=== PATIENT | male | born 1955 ===

== ENCOUNTER 2021-10-24 13:43 | Emergency (ER) | payer BC ==
[~2021-10-24] VITALS: Ht 175.3 cm; Wt 90.9 kg
[2021-10-24 14:00] VITALS: BP 128/90
[2021-10-24 15:06] LABS: BASOPHILS # (AUTO) 0.1 X10'3 (0-0.2); BASOPHILS % (AUTO) 0.8 % (0-1); EOSINOPHILS # (AUTO) 0.7 X10'3 (0-0.9); HEMATOCRIT 41.7 % (42.0-52.0); HEMOGLOBIN 13.5 g/dl (14.0-17.9); LYMPHOCYTES # (AUTO) 1.4 X10'3 (1.1-4.8); MEAN CORPUSCULAR HEMOGLOBIN 26.6 PG (27.0-31.0); MEAN CORPUSCULAR HGB CONC 32.3 g/dL (33.0-36.5); MEAN CORPUSCULAR VOLUME 82.2 FL (78-98); MEAN PLATELET VOLUME 8.3 FL (7.4-10.4); MONOCYTES # (AUTO) 1.2 X10'3 (0-0.9); MONOCYTES % (AUTO) 8.5 % (2-12); NEUTROPHILS # (AUTO) 10.6 X10'3 (1.8-7.7); NEUTROPHILS % (AUTO) 75.7 % (42-75); PLATELET COUNT 262 X10'3 (140-440); RED BLOOD COUNT 5.07 X10'6 (4.70-6.10); RED CELL DISTRIBUTION WIDTH 16.4 % (11.5-14.5); WHITE BLOOD COUNT 14.1 X10'3 (4.5-11.0)
[2021-10-24 15:19] LABS: ALANINE AMINOTRANSFERASE 25 U/L (12-78); ALBUMIN 3.5 G/DL (3.4-5.0); ALBUMIN/GLOBULIN RATIO 0.9 (1.1-1.5); ALKALINE PHOSPHATASE 72 IU/L (46-116); ANION GAP 7 (8-16); ASPARTATE AMINO TRANSFERASE 18 U/L (10-37); BILIRUBIN,TOTAL 0.3 MG/DL (0.1-1.0); BLOOD UREA NITROGEN 13 MG/DL (7-18); CALCIUM 8.3 MG/DL (8.5-10.1); CHLORIDE 102 MMOL/L (99-107); CREATININE 1.18 MG/DL (0.60-1.10); GLUCOSE 74 MG/DL (70-104); POTASSIUM 3.6 MMOL/L (3.5-5.1); SODIUM 139 MMOL/L (135-145); TOTAL CARBON DIOXIDE 29.6 MMOL/L (24-32); TOTAL PROTEIN 7.2 G/DL (6.4-8.2); eGFR 62 ML/MIN
[2021-10-24 16:21] LABS: MAGNESIUM 2.3 MG/DL (1.5-2.4)
== END 2021-10-24 18:50 | disposition left against medical advice (07) ==
LOC: ER 13:59
DX: R42 Dizziness and giddiness (principal); R50.9 Fever, unspecified; R41.0 Disorientation, unspecified; Z53.21 Procedure and treatment not carried out due to patient leaving prior to being seen by health care provider
CPT/HCPCS: 36415; 80053; 83735; 84145; 85025

== ENCOUNTER 2021-12-22 14:19 | Inpatient (IN) | payer BC ==
[~2021-12-22] VITALS: Ht 175.3 cm; Wt 92.0 kg
[2021-12-22] MEDS ORDERED: normal saline 1000ML IV soln IV ONE ×2 (14:50→17:30)
[2021-12-22] MEDS ORDERED: CefTRIAXone 2gm/D5W 50ml BAG 50 ML IV ONE (14:50)
[2021-12-22 15:11] LABS: BASOPHILS % (AUTO) 0.2 % (0-1); EOSINOPHILS # (AUTO) 0.4 X10'3 (0-0.9); EOSINOPHILS % (AUTO) 3.3 % (0-6); HEMOGLOBIN 11.9 g/dl (14.0-17.9); LYMPHOCYTES # (AUTO) 0.8 X10'3 (1.1-4.8); LYMPHOCYTES % (AUTO) 6.9 % (21-51); MEAN CORPUSCULAR HEMOGLOBIN 26.3 PG (27.0-31.0); MEAN CORPUSCULAR HGB CONC 32.1 g/dL (33.0-36.5); MEAN PLATELET VOLUME 8.2 FL (7.4-10.4); MONOCYTES # (AUTO) 1.8 X10'3 (0-0.9); MONOCYTES % (AUTO) 15.2 % (2-12); NEUTROPHILS % (AUTO) 74.4 % (42-75); PLATELET COUNT 284 X10'3 (140-440); RED BLOOD COUNT 4.51 X10'6 (4.70-6.10); RED CELL DISTRIBUTION WIDTH 16.6 % (11.5-14.5); WHITE BLOOD COUNT 12.1 X10'3 (4.5-11.0)
[2021-12-22] MEDS ORDERED: VANCOMYCIN 1GM/200ML IVPB 200 ML IV ONE ×2 (15:15→19:05)
[2021-12-22 15:34] LABS: ALANINE AMINOTRANSFERASE 26 U/L (12-78); ALBUMIN 2.5 G/DL (3.4-5.0); ALBUMIN/GLOBULIN RATIO 0.6 (1.1-1.5); ALKALINE PHOSPHATASE 109 IU/L (46-116); ANION GAP 13 (8-16); ASPARTATE AMINO TRANSFERASE 26 U/L (10-37); BILIRUBIN,TOTAL 0.4 MG/DL (0.1-1.0); BLOOD UREA NITROGEN 51 MG/DL (7-18); BUN/CREATININE RATIO 17.5 (5.4-32.0); CALCIUM 8.8 MG/DL (8.5-10.1); CHLORIDE 95 MMOL/L (99-107); CREATININE 2.91 MG/DL (0.60-1.10); GLUCOSE 64 MG/DL (70-104); POTASSIUM 3.6 MMOL/L (3.5-5.1); SODIUM 133 MMOL/L (135-145); TOTAL CARBON DIOXIDE 25.1 MMOL/L (24-32); eGFR 22 ML/MIN
[2021-12-22] MEDS ORDERED: vancomycin/NS 1 GM ADD-VANTAGE 250 ML IV ONE (15:50)
[2021-12-22] MEDS ORDERED: piperacillin/tazo 3.375gm/50ml 50 ML IV ONE (15:50)
[2021-12-22 15:52] LABS: ANISOCYTOSIS 1+; PLATELET ESTIMATE NORMAL; TOTAL CELLS COUNTED 100
[2021-12-22] MEDS ORDERED: iohexol 300mg/ml 100ml inj. ONE (16:13)
[2021-12-22 16:32] LABS: MAGNESIUM 2.7 MG/DL (1.5-2.4)
[2021-12-22] MEDS ORDERED: DULO30CA52 PO (17:31)
[2021-12-22] MEDS ORDERED: CYCL-1 PO (17:31)
[2021-12-22] MEDS ORDERED: FLUT16SP26 BOTHNARES (17:31)
[2021-12-22] MEDS ORDERED: CHLO25TA10 PO (17:31)
[2021-12-22] MEDS ORDERED: HYDR-3972 PO (17:31)
[2021-12-22] MEDS ORDERED: NEBI5TAB10 PO (17:31)
[2021-12-22] MEDS ORDERED: CITA10TA93 PO (17:31)
[2021-12-22] MEDS ORDERED: LANS30CA56 PO (17:31)
[2021-12-22] MEDS ORDERED: ALBU17AE26 PO (17:31)
[2021-12-22] MEDS ORDERED: ondansetron/PF 4mg/2ml inj IV ONE (17:50)
[2021-12-22] MEDS: morphine 4 MG/ML inj SYRINge IV PRN ×2 (18:05→19:37)
[2021-12-22] MEDS ORDERED: magnesium Cl slow-release 64mg tablet PO PRN (18:15)
[2021-12-22] MEDS ORDERED: magnesium 4gm in 100ml NS 100 ML IV PRN (18:15)
[2021-12-22] MEDS ORDERED: morphine 2 MG/ML inj. syringe IV PRN ×2 (18:15)
[2021-12-22] MEDS ORDERED: magnesium 2GM in 50ml NS 50 ML IV PRN (18:15)
[2021-12-22] MEDS ORDERED: ondansetron/PF 4mg/2ml inj IV PRN (18:15)
[2021-12-22] MEDS ORDERED: potassium CL 10mEq/100ml bag 100 ML IV PRN (18:15)
[2021-12-22] MEDS ORDERED: HYDROcodone/acetaminophen 5mg/325mg tablet PO PRN (18:15)
[2021-12-22] MEDS ORDERED: potassium Cl 20 mEq SR tablet PO PRN ×2 (18:15)
[2021-12-22] MEDS ORDERED: acetaminophen 650mg rectal suppository RC PRN (18:15)
[2021-12-22] MEDS ORDERED: acetaminophen 325mg tablet PO PRN ×2 (18:15)
[2021-12-22] MEDS ORDERED: diphenhydrAMINE 25mg capsule PO PRN (18:15)
[2021-12-22] MEDS ORDERED: bisacodyl 10mg suppository rectal RC PRN (18:15)
[2021-12-22] MEDS ORDERED: magnesium hydroxide 30ml (MOM) UD suspension PO PRN (18:15)
[2021-12-22] MEDS ORDERED: mag hydrox/Alum hydrox/simeth 30ml oral suspension PO PRN (18:15)
[2021-12-22 18:36] LABS: HEMOGLOBIN A1C 6.5 % (4.5-6.2)
[2021-12-22 19:28] LABS: CLARITY,URINE SLIGHTLY CLOUDY (Clear); COLOR,URINE YELLOW (Yellow); GLUCOSE, URINE NEGATIVE (Neg); KETONES,URINE TRACE mg/dl (Neg); LEUKOCYTE ESTERASE ,URINE NEGATIVE (Neg); NITRITES, URINE NEGATIVE (Neg); OCCULT BLOOD,URINE NEGATIVE (Neg); PH,URINE 5.5 (4.8-8.0); PROTEIN,URINE NEGATIVE (Neg)
[2021-12-22] MEDS: normal saline 1000ml 1,000 ML IV SCH (19:38)
[2021-12-22] MEDS: heparin, porcine 5000 units/ml vial SQ SCH (19:38)
[2021-12-22] MEDS: docusate sod 100mg capsule PO SCH (19:38)
[2021-12-22 19:41] LABS: UA COLLECTION TYPE CLN CATCH MIDSTREAM
[2021-12-22 19:44] LABS: BACTERIA,URINE NONE SEEN /HPF (Neg); MUCUS STRANDS FEW /LPF (Neg); RBC,URINE 0-2 /HPF (0-2); SQUAMOUS EPITHELIAL CELL,UR FEW /LPF (FEW); WBC,URINE 0-4 /HPF (0-4)
[2021-12-22] MEDS: K and/or MAG REPLACEMENT MC SCH (19:46)
[2021-12-22 20:00] VITALS: BP 86/53
[2021-12-22] MEDS: piperacillin/tazo 3.375gm/50ml 50 ML IV SCH (21:05)
[2021-12-22 22:57] VITALS: BP 86/53
[2021-12-22 23:19] VITALS: BP 86/53
[2021-12-23] VITALS (9 sets, daily range): BP systolic 78–103; BP diastolic 48–64
[2021-12-23] MEDS: piperacillin/tazo 3.375gm/50ml 50 ML IV SCH ×3 (00:18→16:26)
[2021-12-23] MEDS: normal saline 1000ml 1,000 ML IV SCH ×3 (02:19→20:21)
[2021-12-23] MEDS: CITALOpram 10mg tablet PO SCH (07:31)
[2021-12-23] MEDS: duloxetine 30mg CAPSULE.DR PO SCH (07:31)
[2021-12-23] MEDS: docusate sod 100mg capsule PO SCH ×3 (07:31→19:38)
[2021-12-23] MEDS: pantoprazole 40mg Tablet.DR PO SCH (07:31)
[2021-12-23] MEDS: heparin, porcine 5000 units/ml vial SQ SCH (07:32)
[2021-12-23 07:38] LABS: BASOPHILS % (AUTO) 0.3 % (0-1); EOSINOPHILS # (AUTO) 0.6 X10'3 (0-0.9); EOSINOPHILS % (AUTO) 5.3 % (0-6); HEMATOCRIT 34.2 % (42.0-52.0); HEMOGLOBIN 10.9 g/dl (14.0-17.9); LYMPHOCYTES # (AUTO) 0.4 X10'3 (1.1-4.8); LYMPHOCYTES % (AUTO) 4.1 % (21-51); MEAN CORPUSCULAR HEMOGLOBIN 26.5 PG (27.0-31.0); MEAN PLATELET VOLUME 8.5 FL (7.4-10.4); MONOCYTES # (AUTO) 1.4 X10'3 (0-0.9); MONOCYTES % (AUTO) 12.6 % (2-12); NEUTROPHILS # (AUTO) 8.4 X10'3 (1.8-7.7); NEUTROPHILS % (AUTO) 77.7 % (42-75); PLATELET COUNT 260 X10'3 (140-440); RED BLOOD COUNT 4.11 X10'6 (4.70-6.10); RED CELL DISTRIBUTION WIDTH 17.1 % (11.5-14.5); WHITE BLOOD COUNT 10.8 X10'3 (4.5-11.0)
[2021-12-23] MEDS: HYDROcodone/acetaminophen 10/325mg tab PO PRN (07:43)
[2021-12-23 07:49] LABS: ALANINE AMINOTRANSFERASE 25 U/L (12-78); ALBUMIN/GLOBULIN RATIO 0.6 (1.1-1.5); ALKALINE PHOSPHATASE 113 IU/L (46-116); ANION GAP 10 (8-16); ASPARTATE AMINO TRANSFERASE 25 U/L (10-37); BILIRUBIN,TOTAL 0.5 MG/DL (0.1-1.0); BLOOD UREA NITROGEN 36 MG/DL (7-18); BUN/CREATININE RATIO 22.5 (5.4-32.0); CALCIUM 7.2 MG/DL (8.5-10.1); CHLORIDE 101 MMOL/L (99-107); CHOL/HDL RATIO 11.6 (0.00-4.99); CHOLESTEROL 128 MG/DL (0-200); GLUCOSE 106 MG/DL (70-104); HDL CHOLESTEROL 11 MG/DL (35-60); LDL CHOLESTEROL 38 MG/DL (50-100); MAGNESIUM 2.2 MG/DL (1.5-2.4); PHOSPHORUS 3.5 MG/DL (2.3-4.5); POTASSIUM 3.8 MMOL/L (3.5-5.1); SODIUM 135 MMOL/L (135-145); TOTAL CARBON DIOXIDE 24.3 MMOL/L (24-32); TOTAL PROTEIN 5.4 G/DL (6.4-8.2); TRIGLYCERIDES 327 MG/DL (20-135); eGFR 44 ML/MIN
[2021-12-23] MEDS: K and/or MAG REPLACEMENT MC SCH ×2 (08:00→19:50)
[2021-12-23] MEDS ORDERED: LORazepam 1 MG tablet PO PRN (08:50)
[2021-12-23] MEDS ORDERED: LORazepam 2 mg/ml vial IV PRN (08:50)
[2021-12-23 08:54] LABS: ANISOCYTOSIS 1+; PLATELET ESTIMATE NORMAL; TOTAL CELLS COUNTED 100
[2021-12-23 08:55] LABS: POLYCHROMASIA FEW; SCHISTOCYTES FEW
[2021-12-23] MEDS: enoxaparin 40mg/0.4ml syringe SUBCUT SCH ×3 (09:26→19:38)
[2021-12-23 09:41] LABS: D-DIMER 1.66 MG/L FEU (0-0.50)
--- NOTE | 2021-12-23 18:20 | NUR ---
Patient in room [facility]. I have received report from VAISHNAVI Holden and had the opportunity to ask questions and assume patient care.
--- NOTE | 2021-12-23 18:36 | NUR ---
Problems reprioritized. Patient report given, questions answered & plan of care reviewed with Sagrario RIGGINS.
[2021-12-23] MEDS: VANCOmycin 1250MG/NS 250ml Bag 250 ML IV SCH (22:37)
[2021-12-24] VITALS (8 sets, daily range): BP systolic 100–129; BP diastolic 60–88
[2021-12-24] MEDS: piperacillin/tazo 3.375gm/50ml 50 ML IV SCH ×3 (00:28→15:52)
[2021-12-24] MEDS: normal saline 1000ml 1,000 ML IV SCH ×3 (02:15→18:15)
--- NOTE | 2021-12-24 06:27 | NUR ---
Problems reprioritized. Patient report given, questions answered & plan of care reviewed with VAISHNAVI Holden.
[2021-12-24] MEDS: multivitamins, therapeutics tablet PO SCH (07:13)
[2021-12-24] MEDS: CITALOpram 10mg tablet PO SCH (07:13)
[2021-12-24] MEDS: pantoprazole 40mg Tablet.DR PO SCH (07:13)
[2021-12-24] MEDS: enoxaparin 40mg/0.4ml syringe SUBCUT SCH ×2 (07:14→20:19)
[2021-12-24] MEDS: duloxetine 30mg CAPSULE.DR PO SCH (07:14)
[2021-12-24] MEDS: docusate sod 100mg capsule PO SCH ×2 (07:14→20:19)
[2021-12-24] MEDS: K and/or MAG REPLACEMENT MC SCH ×2 (08:00→19:05)
[2021-12-24 09:10] LABS: BASOPHILS % (AUTO) 0.3 % (0-1); EOSINOPHILS # (AUTO) 0.4 X10'3 (0-0.9); EOSINOPHILS % (AUTO) 4.2 % (0-6); HEMATOCRIT 34.3 % (42.0-52.0); HEMOGLOBIN 10.9 g/dl (14.0-17.9); LYMPHOCYTES # (AUTO) 0.9 X10'3 (1.1-4.8); LYMPHOCYTES % (AUTO) 8.8 % (21-51); MEAN CORPUSCULAR HEMOGLOBIN 26.6 PG (27.0-31.0); MEAN CORPUSCULAR HGB CONC 31.9 g/dL (33.0-36.5); MEAN CORPUSCULAR VOLUME 83.4 FL (78-98); MEAN PLATELET VOLUME 8.3 FL (7.4-10.4); MONOCYTES # (AUTO) 1.3 X10'3 (0-0.9); NEUTROPHILS # (AUTO) 7.3 X10'3 (1.8-7.7); NEUTROPHILS % (AUTO) 73.7 % (42-75); PLATELET COUNT 284 X10'3 (140-440); RED BLOOD COUNT 4.11 X10'6 (4.70-6.10); RED CELL DISTRIBUTION WIDTH 17.1 % (11.5-14.5)
[2021-12-24 09:15] LABS: D-DIMER 1.28 MG/L FEU (0-0.50)
[2021-12-24] MEDS: VANCOmycin 1250MG/NS 250ml Bag 250 ML IV SCH ×2 (10:25→22:00)
[2021-12-24 10:41] LABS: ALANINE AMINOTRANSFERASE 26 U/L (12-78); ALBUMIN/GLOBULIN RATIO 0.6 (1.1-1.5); ALKALINE PHOSPHATASE 140 IU/L (46-116); ANION GAP 12 (8-16); ASPARTATE AMINO TRANSFERASE 18 U/L (10-37); BILIRUBIN,TOTAL 0.5 MG/DL (0.1-1.0); BLOOD UREA NITROGEN 20 MG/DL (7-18); BUN/CREATININE RATIO 17.1 (5.4-32.0); CHLORIDE 102 MMOL/L (99-107); CREATININE 1.17 MG/DL (0.60-1.10); GLUCOSE 104 MG/DL (70-104); LACTATE DEHYDROGENASE 127 U/L (85-227); MAGNESIUM 2.5 MG/DL (1.5-2.4); POTASSIUM 3.5 MMOL/L (3.5-5.1); SODIUM 139 MMOL/L (135-145); TOTAL CARBON DIOXIDE 25.3 MMOL/L (24-32); TOTAL PROTEIN 5.5 G/DL (6.4-8.2); eGFR 63 ML/MIN
[2021-12-24 11:27] LABS: ANISOCYTOSIS 1+; PLATELET ESTIMATE NORMAL; POLYCHROMASIA 1+; TOTAL CELLS COUNTED 100
[2021-12-24 11:28] LABS: ELLIPTOCYTES FEW
--- NOTE | 2021-12-24 18:00 | NUR ---
Patient in room [facility]. I have received report from VAISHNAVI Holden and had the opportunity to ask questions and assume patient care.
--- NOTE | 2021-12-24 18:03 | NUR ---
Problems reprioritized. Patient report given, questions answered & plan of care reviewed with Adina RIGGINS.
[2021-12-24] MEDS: HYDROcodone/acetaminophen 10/325mg tab PO PRN (19:02)
[2021-12-25] VITALS (7 sets, daily range): BP systolic 114–148; BP diastolic 75–88
[2021-12-25] MEDS: piperacillin/tazo 3.375gm/50ml 50 ML IV SCH ×3 (00:09→16:31)
[2021-12-25] MEDS: HYDROcodone/acetaminophen 10/325mg tab PO PRN ×3 (00:17→18:48)
--- NOTE | 2021-12-25 00:23 | NUR ---
Dr. Craft was notified regarding pt. SOR, and wheezing ,he gave a order to stop fluids,to give Lasix 40 mg ones,lab. order and chest X-ray.We will continue with pt. care.
[2021-12-25] MEDS ORDERED: furosemide 40mg/4ml inj IV ONE (00:30)
[2021-12-25 01:41] LABS: ALANINE AMINOTRANSFERASE 25 U/L (12-78); ALBUMIN 1.8 G/DL (3.4-5.0); ALBUMIN/GLOBULIN RATIO 0.6 (1.1-1.5); ALKALINE PHOSPHATASE 148 IU/L (46-116); ANION GAP 9 (8-16); ASPARTATE AMINO TRANSFERASE 21 U/L (10-37); BILIRUBIN,TOTAL 0.4 MG/DL (0.1-1.0); BLOOD UREA NITROGEN 14 MG/DL (7-18); BUN/CREATININE RATIO 13.9 (5.4-32.0); C-REACTIVE PROTEIN 17.57 MG/DL (0.0-0.5); CHLORIDE 104 MMOL/L (99-107); CREATININE 1.01 MG/DL (0.60-1.10); GLUCOSE 98 MG/DL (70-104); LACTATE DEHYDROGENASE 137 U/L (85-227); MAGNESIUM 2.2 MG/DL (1.5-2.4); POTASSIUM 3.7 MMOL/L (3.5-5.1); SODIUM 141 MMOL/L (135-145); TOTAL CARBON DIOXIDE 28.3 MMOL/L (24-32); eGFR 74 ML/MIN
--- NOTE | 2021-12-25 06:10 | NUR ---
Problems reprioritized. Patient report given, questions answered & plan of care reviewed with VAISHNAVI Holden.
[2021-12-25] MEDS: pantoprazole 40mg Tablet.DR PO SCH (07:11)
[2021-12-25] MEDS: docusate sod 100mg capsule PO SCH ×2 (07:11→18:48)
[2021-12-25] MEDS: multivitamins, therapeutics tablet PO SCH (07:11)
[2021-12-25] MEDS: CITALOpram 10mg tablet PO SCH (07:11)
[2021-12-25] MEDS: duloxetine 30mg CAPSULE.DR PO SCH (07:11)
[2021-12-25] MEDS: enoxaparin 40mg/0.4ml syringe SUBCUT SCH ×2 (07:12→18:49)
[2021-12-25 07:54] LABS: BASOPHILS # (AUTO) 0.1 X10'3 (0-0.2); BASOPHILS % (AUTO) 0.6 % (0-1); EOSINOPHILS # (AUTO) 0.4 X10'3 (0-0.9); EOSINOPHILS % (AUTO) 4.5 % (0-6); HEMATOCRIT 33.6 % (42.0-52.0); HEMOGLOBIN 10.9 g/dl (14.0-17.9); LYMPHOCYTES # (AUTO) 0.9 X10'3 (1.1-4.8); LYMPHOCYTES % (AUTO) 9.1 % (21-51); MEAN CORPUSCULAR HEMOGLOBIN 26.5 PG (27.0-31.0); MEAN CORPUSCULAR HGB CONC 32.3 g/dL (33.0-36.5); MEAN CORPUSCULAR VOLUME 82.1 FL (78-98); MEAN PLATELET VOLUME 8.3 FL (7.4-10.4); MONOCYTES # (AUTO) 1.2 X10'3 (0-0.9); MONOCYTES % (AUTO) 11.9 % (2-12); NEUTROPHILS # (AUTO) 7.3 X10'3 (1.8-7.7); NEUTROPHILS % (AUTO) 73.9 % (42-75); PLATELET COUNT 326 X10'3 (140-440); WHITE BLOOD COUNT 9.8 X10'3 (4.5-11.0)
[2021-12-25] MEDS: K and/or MAG REPLACEMENT MC SCH ×2 (08:00→18:49)
[2021-12-25 08:47] LABS: D-DIMER 0.95 MG/L FEU (0-0.50)
[2021-12-25] MEDS ORDERED: VANCOMYCIN LEVEL IV ONE (09:30)
[2021-12-25 10:36] LABS: ANISOCYTOSIS 1+; MICROCYTOSIS 1+; PLATELET ESTIMATE NORMAL; POLYCHROMASIA FEW; TOTAL CELLS COUNTED 100
[2021-12-25] MEDS: VANCOmycin 1250MG/NS 250ml Bag 250 ML IV SCH ×2 (10:37→22:07)
--- NOTE | 2021-12-25 15:13 | NUR ---
Message: [id number]. Did you want to do US of chest? I was told you were considering, but I do not have any orders. Adina RIGGINS [id number]
[2021-12-25] MEDS ORDERED: iohexol 300mg/ml 100ml inj. ONE (16:25)
--- NOTE | 2021-12-25 18:17 | NUR ---
Patient in room [facility]. I have received report from VAISHNAVI Holden and had the opportunity to ask questions and assume patient care.
--- NOTE | 2021-12-25 18:27 | NUR ---
Problems reprioritized. Patient report given, questions answered & plan of care reviewed with Adina RIGGINS.
[2021-12-25] MEDS ORDERED: dextrose ORAL solution 15 GM/59 ML bottle PO PRN ×2 (19:40)
[2021-12-25] MEDS ORDERED: glucagon, human recombinant 1mg kit SUBCUT PRN (19:40)
[2021-12-25] MEDS ORDERED: dextrose 50%-water 50ml dispensing syringe IV PRN ×2 (19:40)
[2021-12-25] MEDS ORDERED: insulin Lispro (HumaLOG) vial - multi-dose SQ SCH (19:40)
[2021-12-25] MEDS ORDERED: ALBUTEROL INHALER 1 PUFF/90 MCG INHALER IH PRN (19:40)
[2021-12-25] MEDS: clindamycin 600mg/D5W 50ml 50 ML IV SCH (20:03)
[2021-12-25] MEDS: insulin glargine (Lantus) pen - multi-dose SQ SCH (21:00)
[2021-12-26] MEDS: piperacillin/tazo 3.375gm/50ml 50 ML IV SCH ×3 (00:23→15:36)
[2021-12-26] MEDS: HYDROcodone/acetaminophen 10/325mg tab PO PRN ×5 (00:32→21:01)
[2021-12-26] MEDS: clindamycin 600mg/D5W 50ml 50 ML IV SCH ×4 (02:18→19:24)
[2021-12-26 06:00] VITALS: BP 136/90
--- NOTE | 2021-12-26 06:05 | NUR ---
received report from porter yen
--- NOTE | 2021-12-26 06:14 | NUR ---
Problems reprioritized. Patient report given, questions answered & plan of care reviewed with VAISHNAVI Albrecht.
[2021-12-26] MEDS: pantoprazole 40mg Tablet.DR PO SCH (07:10)
[2021-12-26] MEDS: CITALOpram 10mg tablet PO SCH (07:10)
[2021-12-26] MEDS: duloxetine 30mg CAPSULE.DR PO SCH (07:10)
[2021-12-26] MEDS: multivitamins, therapeutics tablet PO SCH (07:11)
[2021-12-26] MEDS: enoxaparin 40mg/0.4ml syringe SUBCUT SCH ×2 (07:22→19:16)
[2021-12-26 07:45] LABS: D-DIMER 1.37 MG/L FEU (0-0.50)
[2021-12-26 07:53] LABS: BASOPHILS % (AUTO) 0.5 % (0-1); EOSINOPHILS # (AUTO) 0.5 X10'3 (0-0.9); EOSINOPHILS % (AUTO) 6.2 % (0-6); HEMOGLOBIN 10.9 g/dl (14.0-17.9); LYMPHOCYTES # (AUTO) 0.9 X10'3 (1.1-4.8); LYMPHOCYTES % (AUTO) 10.2 % (21-51); MEAN CORPUSCULAR HEMOGLOBIN 26.1 PG (27.0-31.0); MEAN CORPUSCULAR VOLUME 81.5 FL (78-98); MONOCYTES # (AUTO) 0.8 X10'3 (0-0.9); MONOCYTES % (AUTO) 9.3 % (2-12); NEUTROPHILS # (AUTO) 6.2 X10'3 (1.8-7.7); NEUTROPHILS % (AUTO) 73.8 % (42-75); PLATELET COUNT 335 X10'3 (140-440); RED BLOOD COUNT 4.17 X10'6 (4.70-6.10); RED CELL DISTRIBUTION WIDTH 16.7 % (11.5-14.5); WHITE BLOOD COUNT 8.4 X10'3 (4.5-11.0)
[2021-12-26] MEDS: docusate sod 100mg capsule PO SCH ×2 (08:00→20:00)
[2021-12-26] MEDS: K and/or MAG REPLACEMENT MC SCH ×2 (08:00→20:00)
[2021-12-26 08:21] LABS: ALANINE AMINOTRANSFERASE 29 U/L (12-78); ALBUMIN 2.1 G/DL (3.4-5.0); ALBUMIN/GLOBULIN RATIO 0.6 (1.1-1.5); ALKALINE PHOSPHATASE 156 IU/L (46-116); ANION GAP 8 (8-16); ASPARTATE AMINO TRANSFERASE 27 U/L (10-37); BILIRUBIN,TOTAL 0.5 MG/DL (0.1-1.0); BLOOD UREA NITROGEN 10 MG/DL (7-18); BUN/CREATININE RATIO 11.9 (5.4-32.0); C-REACTIVE PROTEIN 9.96 MG/DL (0.0-0.5); CALCIUM 8.5 MG/DL (8.5-10.1); CHLORIDE 102 MMOL/L (99-107); CREATININE 0.84 MG/DL (0.60-1.10); GLUCOSE 96 MG/DL (70-104); LACTATE DEHYDROGENASE 153 U/L (85-227); PHOSPHORUS 3.7 MG/DL (2.3-4.5); POTASSIUM 3.4 MMOL/L (3.5-5.1); SODIUM 142 MMOL/L (135-145); TOTAL CARBON DIOXIDE 32.2 MMOL/L (24-32); TOTAL PROTEIN 5.5 G/DL (6.4-8.2); eGFR > 90 ML/MIN
--- NOTE | 2021-12-26 08:39 | NUR ---
Initial: Pt admitted w/ sepsis secondary to L chest cellulitis per EMR. Pt currently on Carb Controlled/Heart Healthy diet w/ mostly 100% intake of meals which meets approximately 100% of est protein and energy needs. Recommend liberalizing to Regular diet given A1c 6.5 and BG well controlled this admit. Additionally, pt w/ elevated TG and low HDL/LDL, consider fish oil supplement in lieu of Heart Healthy diet per MD discretion. LBM 2/5. Will continue to monitor. Recs: 1. Consider liberalizing to Regular diet 2. Consider fish oil supplement per MD discretion 3. Monitor need for additional protein 4. Bowel care per rx 5. Weekly wts Addendum: 12/26/21 at [address] Amended: Links added.
[2021-12-26] MEDS ORDERED: magnesium 4gm in 100ml NS 100 ML IV PRN (08:40)
[2021-12-26] MEDS ORDERED: magnesium Cl slow-release 64mg tablet PO PRN (08:40)
[2021-12-26] MEDS ORDERED: potassium CL 10mEq/100ml bag 100 ML IV PRN (08:40)
[2021-12-26] MEDS ORDERED: potassium Cl 20 mEq SR tablet PO PRN (08:40)
[2021-12-26] MEDS ORDERED: magnesium 2GM in 50ml NS 50 ML IV PRN (08:40)
[2021-12-26] MEDS: potassium Cl 20 mEq SR tablet PO PRN ×3 (08:58→16:55)
--- NOTE | 2021-12-26 08:59 | NUR ---
computer not scanning all meds into [employer], checked meds prior to admin
[2021-12-26 10:00] VITALS: BP 139/91
[2021-12-26] MEDS: VANCOmycin 1250MG/NS 250ml Bag 250 ML IV SCH ×2 (10:22→22:21)
--- NOTE | 2021-12-26 11:58 | NUR ---
Diabetes consult: Noted A1c 6.5 though no hx of DM in EMR. Pt will need official diagnosis by MD before RD can provide DM education. Addendum: 12/26/21 at [address] Amended: Links added.
[2021-12-26 12:48] LABS: TOTAL CELLS COUNTED 100
[2021-12-26 12:50] LABS: ANISOCYTOSIS 1+; HYPOCHROMASIA 1+; PLATELET ESTIMATE NORMAL; POLYCHROMASIA FEW; TEAR DROP CELLS FEW
--- NOTE | 2021-12-26 15:36 | NUR ---
scanner on computer not scanning meds into [employer], checked meds prior to admin
--- NOTE | 2021-12-26 16:56 | NUR ---
scanner on computer not scanning meds into [employer], checked meds prior to admin
[2021-12-26 18:00] VITALS: BP 148/91
--- NOTE | 2021-12-26 18:22 | NUR ---
GAVE REPORT TO February,
[2021-12-26] MEDS: insulin glargine (Lantus) pen - multi-dose SQ SCH (21:00)
[2021-12-26 22:00] VITALS: BP 146/89
[2021-12-27] MEDS: piperacillin/tazo 3.375gm/50ml 50 ML IV SCH ×2 (00:26→09:06)
[2021-12-27 02:00] VITALS: BP 136/91
[2021-12-27] MEDS: clindamycin 600mg/D5W 50ml 50 ML IV SCH ×2 (02:37→07:43)
[2021-12-27] MEDS: HYDROcodone/acetaminophen 10/325mg tab PO PRN ×3 (02:37→12:44)
[2021-12-27 06:00] VITALS: BP 149/95
--- NOTE | 2021-12-27 06:05 | NUR ---
received report from ban, rn
[2021-12-27] MEDS: CITALOpram 10mg tablet PO SCH (07:43)
[2021-12-27] MEDS: multivitamins, therapeutics tablet PO SCH (07:43)
[2021-12-27] MEDS: pantoprazole 40mg Tablet.DR PO SCH (07:43)
[2021-12-27] MEDS: duloxetine 30mg CAPSULE.DR PO SCH (07:44)
[2021-12-27] MEDS: enoxaparin 40mg/0.4ml syringe SUBCUT SCH (07:44)
[2021-12-27 07:57] LABS: D-DIMER 2.01 MG/L FEU (0-0.50)
[2021-12-27] MEDS: docusate sod 100mg capsule PO SCH (08:00)
[2021-12-27] MEDS: K and/or MAG REPLACEMENT MC SCH (08:00)
[2021-12-27 08:02] LABS: BASOPHILS % (AUTO) 0.4 % (0-1); EOSINOPHILS # (AUTO) 0.7 X10'3 (0-0.9); EOSINOPHILS % (AUTO) 6.2 % (0-6); HEMATOCRIT 36.4 % (42.0-52.0); HEMOGLOBIN 11.7 g/dl (14.0-17.9); LYMPHOCYTES % (AUTO) 8.6 % (21-51); MEAN CORPUSCULAR HEMOGLOBIN 26.5 PG (27.0-31.0); MEAN CORPUSCULAR HGB CONC 32.3 g/dL (33.0-36.5); MEAN PLATELET VOLUME 7.6 FL (7.4-10.4); MONOCYTES % (AUTO) 8.6 % (2-12); NEUTROPHILS # (AUTO) 8.8 X10'3 (1.8-7.7); NEUTROPHILS % (AUTO) 76.2 % (42-75); PLATELET COUNT 345 X10'3 (140-440); RED BLOOD COUNT 4.44 X10'6 (4.70-6.10); RED CELL DISTRIBUTION WIDTH 17.2 % (11.5-14.5); WHITE BLOOD COUNT 11.5 X10'3 (4.5-11.0)
[2021-12-27 08:27] LABS: ALANINE AMINOTRANSFERASE 64 U/L (12-78); ALBUMIN 2.2 G/DL (3.4-5.0); ALBUMIN/GLOBULIN RATIO 0.6 (1.1-1.5); ALKALINE PHOSPHATASE 170 IU/L (46-116); ANION GAP 9 (8-16); ASPARTATE AMINO TRANSFERASE 79 U/L (10-37); BILIRUBIN,TOTAL 0.5 MG/DL (0.1-1.0); BLOOD UREA NITROGEN 10 MG/DL (7-18); BUN/CREATININE RATIO 11.5 (5.4-32.0); CALCIUM 8.6 MG/DL (8.5-10.1); CHLORIDE 103 MMOL/L (99-107); CREATININE 0.87 MG/DL (0.60-1.10); GLUCOSE 99 MG/DL (70-104); LACTATE DEHYDROGENASE 195 U/L (85-227); MAGNESIUM 2.1 MG/DL (1.5-2.4); PHOSPHORUS 4.2 MG/DL (2.3-4.5); POTASSIUM 3.6 MMOL/L (3.5-5.1); SODIUM 144 MMOL/L (135-145); TOTAL CARBON DIOXIDE 32.4 MMOL/L (24-32); TOTAL PROTEIN 5.9 G/DL (6.4-8.2); eGFR 88 ML/MIN
[2021-12-27] MEDS ORDERED: furosemide 20 MG/2 ML vial IV SCH (09:10)
[2021-12-27] MEDS: VANCOmycin 1250MG/NS 250ml Bag 250 ML IV SCH (10:47)
[2021-12-27] MEDS ORDERED: CLIN-91 PO (12:58)
[2021-12-27] MEDS ORDERED: HYDR-3972 PO (12:58)
--- NOTE | 2021-12-27 13:44 | NUR ---
DM Consult: Pt A1C 6.5% new DX this admit per MD note though unsure if pt aware at this time; MEDARDO d/w RN who is unsure as well. MEDARDO attempted to reach pt via TC however not successful. Pt would benefit from DM diet ed information prior to discharge. Addendum: 12/27/21 at [address] Amended: Links added.
--- NOTE | 2021-12-27 14:55 | NUR ---
pt d/c with instructions understanding of instructions and w/all belongings accompanied by nursing staff in wheelchair to private vehicle to go home and f/u w pcp also pt educated and given information about his newly diagnosis of diabetes
[2021-12-28] MEDS ORDERED: thiamine 100mg tablet PO SCH (08:00)
[2021-12-28] MEDS ORDERED: folic acid 1mg tablet PO SCH (08:00)
== END 2021-12-27 14:40 | disposition home or self-care (01) | DRG 871 ==
LOC: ER 14:19 → ED HOLD 18:17 → ORTHO 4S 22:05
PROVIDERS: ADMIT Family Medicine; ATTEND Family Medicine
PROC: BW241ZZ Computerized Tomography (CT Scan) of Chest and Abdomen using Low Osmolar Contrast (ICD-10-PCS; principal; 2021-12-22)
PROC: BW251ZZ Computerized Tomography (CT Scan) of Chest, Abdomen and Pelvis using Low Osmolar Contrast (ICD-10-PCS; 2021-12-25)
DX: A41.9 Sepsis, unspecified organism (principal); U07.1 COVID-19; L03.313 Cellulitis of chest wall; E87.1 Hypo-osmolality and hyponatremia; J90 Pleural effusion, not elsewhere classified; N17.9 Acute kidney failure, unspecified; L03.311 Cellulitis of abdominal wall; E11.9 Type 2 diabetes mellitus without complications; F32.A Depression, unspecified; K21.9 Gastro-esophageal reflux disease without esophagitis; K44.9 Diaphragmatic hernia without obstruction or gangrene; J44.9 Chronic obstructive pulmonary disease, unspecified; I10 Essential (primary) hypertension; F10.20 Alcohol dependence, uncomplicated; R65.20 Severe sepsis without septic shock; F41.9 Anxiety disorder, unspecified; Z79.899 Other long term (current) drug therapy; Z80.1 Family history of malignant neoplasm of trachea, bronchus and lung; Z80.8 Family history of malignant neoplasm of other organs or systems; Z85.01 Personal history of malignant neoplasm of esophagus; Z87.891 Personal history of nicotine dependence
CPT/HCPCS: 36415; 71045; 71250; 71260; 74177; 80053; 80061; 80202; 81001; 82948; 83036; 83605; 83615; 83735; 83880; 84100; 84145; 85007; 85025; 85379; 86140; 87040; 87081; 87635; 93005; 93306; 97530; 99285; G0378; J0696; J1644; J1650; J1815; J1940; J2270; J2405; J2543; J3370; J3490; J7030; Q9967